=== PATIENT | female | born 1950 ===

== ENCOUNTER 2024-01-03 18:37 | Outpatient (REF) | payer MEDICARE, OTHER, SELFPAY ==
[2024-01-03 21:59] LABS: Abs Immature Grans 0.02 10^3/uL (0.0-0.06); Absolute Basophil Count 0.06 10^3/uL (0.0-0.2); Absolute Eosinophil Count 0.11 10^3/uL (0.0-0.7); Absolute Lymphocyte Count 2.53 10^3/uL (1.2-3.4); Absolute Monocyte Count 0.64 10^3/uL (0.1-0.8); Absolute Neutrophil Count 3.73 10^3/uL (1.2-6.7); Basophils % 0.8 %; Eosinophils % 1.6 %; HCT 42.8 % (36.0-46.0); HGB 13.8 g/dL (11.2-15.7); Immature Grans % 0.3 %; Lymphocytes % 35.7 %; MCH 29.2 pg (27.0-33.0); MCHC 32.2 % (32.0-36.0); MCV 91 fL (80-95); MPV 10.5 fL (8.0-11.0); Neutrophils % 52.6 %; Platelet Count 245 10^3/uL (130-400); RBC 4.72 10^6/uL (3.93-5.22); RDW 12.1 % (11.7-14.6); RDW-SD 40.4 fL; WBC 7.09 10^3/uL (4.4-10.8)
[2024-01-03 22:25] LABS: FREE T4 1.02 ng/dL (0.76-1.46); TSH 0.56 uIU/mL (0.36-3.74)
[2024-01-03 22:37] LABS: Calculated LDL 76 mg/dL (<100); Cholesterol 181 mg/dL (<200); HDL Cholesterol 69 mg/dL (40-60); Triglyceride 180 mg/dL (<150)
[2024-01-03 22:56] LABS: Hemoglobin A1C 5.1 % (<5.7)
== END 2024-01-03 18:38 | disposition home or self-care (01) ==
LOC: NCHCN 18:37
PROVIDERS: Visit Provider Family Medicine
DX: E78.5 Hyperlipidemia, unspecified (principal); Z13.1 Encounter for screening for diabetes mellitus; I48.0 Paroxysmal atrial fibrillation
CPT/HCPCS: 80061; 83036; 84439; 84443; 85025